=== PATIENT | female | born 1945 | race Caucasian/White ===

== ENCOUNTER → 2018-09-22 08:47 | Outpatient (CLI) | payer MEDICARE, BC, SELFPAY ==
--- NOTE | 2018-09-22 | DI.US.S_ITS ---
PROCEDURE: US CAROTID DOPPLER BI INDICATIONS: ATHEROSCLEROTIC HEART DISEASE TECHNIQUE: Color and pulse Doppler interrogation was performed of both carotid systems, with image documentation and velocity measurements. COMPARISON: None. FINDINGS: Stenosis calculations are based on SRU (Society of Radiologists in Ultrasound) criteria. Right side: Brachial blood pressure: 129/75 mm Hg. Common carotid artery peak systolic velocity: 83 cm/sec. Internal carotid artery peak systolic velocity: 113 cm/sec. Internal carotid artery end diastolic velocity: 29 cm/sec. External carotid artery peak systolic velocity: 55 cm/sec. ICA/CCA peak systolic ratio: 1.4. [place] scale imaging description: Minimal plaque at the bifurcation. Percent internal carotid artery stenosis: Less than 50% stenosis. Vertebral artery: Flow direction is antegrade. Left side: Brachial blood pressure: 132/82 mm Hg. Common carotid artery peak systolic velocity: 81 cm/sec. Internal carotid artery peak systolic velocity: 103 cm/sec. Internal carotid artery end diastolic velocity: 39 cm/sec. External carotid artery peak systolic velocity: 66 cm/sec. ICA/CCA peak systolic ratio: 1.3. [place] scale imaging description: Minimal plaque at the bifurcation. Percent internal carotid artery stenosis: Less than 50% stenosis. Vertebral artery: Flow direction is antegrade. IMPRESSION: Less than 50% stenosis of the internal carotid arteries bilaterally. Dictated by: Priyanka Quinones M.D. on 09/22/2018 at 14:07 Approved by: Priyanka Quinones M.D. on 09/22/2018 at 14:08
== END ==
PROVIDERS: PCP Internal Medicine; Visit Provider Internal Medicine Cardiovascular Disease
DX: I65.23 Occlusion and stenosis of bilateral carotid arteries (principal); I25.10 Atherosclerotic heart disease of native coronary artery without angina pectoris
CPT/HCPCS: 93880

== ENCOUNTER 2018-10-20 11:30 | Outpatient (RCR) | payer MEDICARE, BC, SELFPAY ==
--- NOTE | 2018-09-22 13:58 | ST.OPTN ---
Care Team Visit Care Team Role Provider Type Other Providers Address: Phone: Fax: Pipo Ramsey Attending Provider Non-Staff Address: [address] [place] [address], [address], [place], [address] GANG MINER Treatment Note GANG MINER Treatment Note Start: 07/16/18 10:50 Freq: Status: Active Protocol: Document 09/22/18 13:29 LNK (Rec: 09/22/18 13:57 LNK [id number]) Speech Pathology Treatment Note Session Time Visit Start Time 10:30 Visit Stop Time 11:20 Total Visit Minutes 50 Visit Information Visit Number 7 Setting Treatment Setting Acute Care Visit Type Note Type Progress Note General Information General Information Pt was seen for a voice evaluation at the referral of Dr. Liliya Ramsey on 07/16/18 . According to the pt she has had difficulty with her voice since April when she attended a concert and was yelling during the concert. She noticed hoarseness the next day reading aloud to her brother. She tried 2 separate periods of total voice rest/ silence, without benefit. She also tried a course of steroids and use of an inhaler prescribed by her doctor without benefit. At that point she was referred to an ENT/Dr. Ramsey Stroboscopy indicated good vocal cord function and anatomy with some variable tension of the false vocal folds. Dr. Ramsey recommended seeing a speech pathologist/vocal therapy. In describing her symptoms, pt noted that she has a smidge of reflux and does not take medication for it. Relative to the pt's vocal characteristics, she presented with a voice that is minimally impacted by her hypertension. Her values for maximum phonation time, jitter , shimmer and speaking range were WFL. Pt's pitch is lower than expected. The pt does note that her typical pitch has always been low. Her singing range, also, is limited. At the higher pitches of her range while singing, her vocal quality becomes strained. Pt's overall anxiety over her voice and her muscular tension in the neck, shoulders and thorax, are impacting the pt's ability to use her voice efficiently. She described speaking as being difficult and tiring. Subjective Identification Type Name Identification Reconciled With Intake Sheet Observations/Patient Presentation Pts overall body tension has been reduced. She attends a meditation group weekly. Chief Complaint(s) Voice Rehab Expectation/Goals: Patient Goals Decrease tension around in her neck and shoulder areas while talking Patient Knowledge/Awareness of GANG MINER Role Excellent in Treatment Patient/Caregiver Compliance with Home Good Exercise Program Objective Short Term Goals The pt will use abdominal breathing for speech 90% of all speaking situations. *GOAL MET* The pt will practice progressive relaxation and exercises to address her upper body tension. *GOAL MET* The pt will demonstrate relaxed vocalization with out tension in the neck/jaw area at 90% of speaking situations. *GOAL MET* *NEW GOAL* Pt has expressed a goal to increase her pitch level to not sound so low. Pt's pitch will increase ro 156HZ to between 170-185Hz in spontaneous conversation Lending Advisor Goals Pt will demonstrate normal functioning of her voice in all situations. Treatment Activities Pt expressed that her voice has been mistaken on the phone for that of her lately. using a range of different pitches higher than the pt's habitual pitch, the clinician worked with the pt to determine a comfortable pitch that would not feel strained for the pt. After several trials , the pt identified 175-185Hz and most comfortable. A recording of the pt reciting a common nursery rhyme while visually tracking her pitch levels was produced. the pt noted that the voice pitch was similar to her younger pitch . HEP is to find a method (pitch pipe, the voice analysis cristopher on her phone, etc) to monitor and track her pitch production in various tasks. Pt reported that she was enthusiastic and would practice over the next 3 weeks . Recommend pt return to Dr. Lovell for stroboscopic re- evaluation of pt's vocal tract function Assessment Patient Response to Treatment Excellent Rehab Potential Excellent Impairments Identified Dysphonia Progress Towards Goals Excellent Progress Assessment of Improvement The pt has met all prior goals and has expressed a desire to change her low pitch to one more feminine. She has found a meditation group, which has helped with her overall stress/tension. Pt is very responsive and receptive to therapeutic activities. Her prognosis is excellent. Reviewed with Patient Goals Progress Being Made Home Exercise Program Patient/Caregiver Understanding Excellent Plan Amount of Therapy Recommended 1-2 Months Frequency of Treatment Once a Week Length of Session 45 Minutes Therapeutic Contents Voice Training Provided Patient/Caregiver Instruction Home Exercise Program Questions/Concerns Therapy Recommendations Continue with Current Program Suggested Referral ENT
--- NOTE | 2018-10-20 13:55 | ST.OPDS ---
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 She had been referred by Dr Liliya Ramsey, ENT. Stroboscopy indicated good vocal cord function and anatomy with some variable tension of the false vocal folds. Dr. Ramsey recommended seeing a speech pathologist/vocal therapy. In describing her symptoms, pt noted that she has a smidge of reflux and does not take medication for it. Relative to the pt's vocal characteristics, she presented with a voice that is minimally impacted by her hypertension. Her values for maximum phonation time, jitter , shimmer and speaking range were WFL. Pt's pitch is lower than expected. The pt does note that her typical pitch has always been low. Her singing range, also, is limited. At the higher pitches of her range while singing, her vocal quality becomes strained. Subjective Identification Type Name Identification Reconciled With Intake Sheet Observations/Patient Presentation Pts overall body tension has been reduced. She attends a meditation group weekly. 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 *GOAL MET* The pt will practice progressive relaxation and exercises to address her upper body tension. *GOAL MET* The pt will demonstrate relaxed vocalization with out tension in the neck/jaw area at 90% of speaking situations. *GOAL MET* *NEW GOAL* Pt has expressed a goal to increase her pitch level to not sound so low. Pt's pitch will increase to 156HZ to between 170-185Hz in spontaneous conversation * IMPROVING* Treatment Activities Pt reported that she no longer feels pain in her troat/neck areas when speaking. She also expressed gratitude for her voice improvement. Measures for pt's pitch are in low normal range for a female. Her loudness, jitter and shimmer are WFL. Pt is currently satisfied with her vocal quality. She has expressed a desire for more pitch range, but feels that she is able to continue to practice at home on her own. Assessment Patient Response to Treatment Excellent Rehab Potential Excellent Progress Towards Goals Excellent Progress Assessment of Overall Progress Rehabilitated Assessment of Improvement The pt has met all prior goals and is currently willing to follow HEP on her own. She has found a meditation group, which has helped with her overall stress/tension. Pt is very responsive and receptive to therapeutic activities. Recommend D/C from ST at this time. Pt encouraged to return to this clinic if she is in need of vocal therapy in the future . Reviewed with Patient Progress Being Made Home Exercise Program Plan Amount of Therapy Recommended No Further Therapy Therapeutic Contents Home Exercise Program Provided Patient/Caregiver Instruction Home Exercise Program Questions/Concerns Therapy Recommendations Discharge to Home Exercise Program
--- NOTE | 2018-11-04 11:52 | ST.OPPOC ---
Care Team Visit Care Team Role Provider Type Other Providers Address: Phone: Fax: Pipo Ramsey Attending Provider Non-Staff Address: [address] [place] [address], [address], [place], [address] Speech Pathology Plan of Care General Information Aylin Bee has been seen for vocal therapy since 07/21/18. She had been referred by Dr Liliya Ramsey, ENT. Stroboscopy indicated good vocal cord function and anatomy with some variable tension of the false vocal folds. Dr. Ramsey recommended seeing a speech pathologist/vocal therapy. In describing her symptoms, pt noted that she has a smidge of reflux and does not take medication for it. Relative to the pt's vocal characteristics, she presented with a voice that is minimally impacted by her hypertension. Her values for maximum phonation time, jitter, shimmer and speaking range were WFL. Pt's pitch is lower than expected. The pt does note that her typical pitch has always been low. Her singing range, also, is limited. At the higher pitches of her range while singing, her vocal quality becomes strained. Visit Number 8 Plan of Care Dates 07/08/18-10/06/18 Patient Comments Pts overall body tension has been reduced. She attends a meditation group weekly. 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 *GOAL MET* The pt will practice progressive relaxation and exercises to address her upper body tension. * GOAL MET* The pt will demonstrate relaxed vocalization with out tension in the neck/jaw area at 90% of speaking situations. *GOAL MET* *NEW GOAL* Pt has expressed a goal to increase her pitch level to not sound so low. Pt's pitch will increase ro 156HZ to between 170- 185Hz in spontaneous conversation *IMPROVING* Care Home Goals Pt will demonstrate normal functioning of her voice in all situations. Treatment Activities Pt reported that she no longer feels pain in her throat/neck areas when speaking. She also expressed gratitude for her voice improvement. Measures for pt's pitch are in low normal range for a female. Her loudness, jitter and shimmer are WFL. Pt is currently satisfied with her vocal quality . She has expressed a desire for more pitch range, but feels that she is able to continue to practice at home on her own. Rehabilitation Potential Excellent Impairments Identified Dysphonia Progress Towards Goals Excellent Progress Assessment of Improvement The pt has met all prior goals and is currently willing to follow HEP on her own. She has found a meditation group, which has helped with her overall stress/tension. Pt is very responsive and receptive to therapeutic activities. Recommend D/C from at this time. Pt encouraged to return to this clinic if she is in need of vocal therapy in the future. Reviewed with Patient Progress Being Made,Home Exercise Program Patient Understanding Excellent Length of Therapy Recommended No Further Therapy Treatment Frequency Once a Week Treatment Duration 45 Minutes Therapeutic Contents Home Exercise Program Patient Recommendations Discharge to Home Exercise Recommended Referrals ENT
== END 2018-10-21 12:24 ==
LOC: SP 11:30
PROVIDERS: Visit Provider Otolaryngology
DX: R49.0 Dysphonia (principal)
CPT/HCPCS: 92507; 92520; 92524